=== PATIENT | female | born 1975 | race Caucasian/White ===

== ENCOUNTER → 2017-06-01 17:07 | Outpatient (CLI) | payer BC ==
[2013-08-13 06:19] VITALS: BMI 31.8
[~2017-06-01 17:07] MED LIST: HYDROCHLOROTH12.5 M1 PO; NORCO 10/325 TA1 TA1 PO; PRILOSEC20 MG PO; PROZAC10 MG PO
== END | disposition home or self-care (01) ==
LOC: D.MAMMO 10:30
DX: R92.8 Other abnormal and inconclusive findings on diagnostic imaging of breast (principal)

== ENCOUNTER → 2018-11-01 08:00 | Outpatient (CLI) | payer BC ==
[2013-08-13 06:19] VITALS: BMI 31.8
== END | disposition home or self-care (01) ==
LOC: D.MAMMO 08:00
DX: Z12.31 Encounter for screening mammogram for malignant neoplasm of breast (principal)

== ENCOUNTER → 2020-12-30 09:45 | Outpatient (CLI) | payer BC ==
[2013-08-13 06:19] VITALS: BMI 31.8
== END | disposition home or self-care (01) ==
LOC: D.MAMMO 09:45
PROVIDERS: ATTEND Family Medicine
DX: Z12.31 Encounter for screening mammogram for malignant neoplasm of breast (principal)